=== PATIENT | male | born 1955 | race Caucasian/White ===

== ENCOUNTER → 2019-12-30 | Outpatient (CLI) | payer BC ==
--- NOTE | 2019-12-30 14:52 | RAD ---
EXAM: Right knee, 3 views. HISTORY: Pain. COMPARISON: None. FINDINGS: 3 views of the right knee are obtained. There is no fracture, dislocation or subluxation. There is a small to moderate joint effusion. There is enthesopathy along the superior patella. IMPRESSION: Small to moderate right knee effusion. Electronically signed by: Ghada Weiss MD (12/30/2019 2:49 PM) [id number]
== END | disposition home or self-care (01) ==
LOC: DXRAD 14:29
PROVIDERS: ATTEND Physician Assistant
DX: M25.461 Effusion, right knee (principal); M76.51 Patellar tendinitis, right knee; Z87.828 Personal history of other (healed) physical injury and trauma
CPT/HCPCS: 73562